=== PATIENT | female | born 1990 | race Caucasian/White ===

== ENCOUNTER 2016-06-30 15:24 | Emergency (ER) | payer OTHER ==
--- NOTE | 2016-06-30 16:29 | ER NURSING DOCUMENTATION ---
Nurse's Notes [facility] Name:Jennifer Munroe Age:25 yrs Sex:Female :1990 Arrival Date:06/30/2016 Time:15:24 Bed5 Private MD: Diagnosis:Viral Illness;Viral Upper Respiratory Infection (URI) Presentation: 06/30 15:28 Acuity: MILO 4 tg 15:30 Presenting complaint: Patient states: Cough for the past several days, interfering with tg sleep from pain. Body aches, feverish. Transition of care: patient was not received from another setting of care. Resp Distress? No respiratory distress is noted at this time. 15:30 Method Of Arrival: Private Vehicle tg Triage Assessment: 15:30 General: Appears in no apparent distress, Behavior is cooperative. Pain: Complains of tg pain in chest Aggravated by cough. Neuro: Level of Consciousness is awake, alert. Cardiovascular: No deficits noted. Respiratory: Breath sounds are clear bilaterally. Reports shortness of breath cough that is pain with cough Denies pain with respiration, pain with movement. Derm: Skin is pink, warm & dry. Historical: - Allergies: No known drug Allergies; No known drug Allergies; - Home Meds: 1. BC pill - PMHx: None; - PSHx: Tonsillectomy; - Tetanus: < 10 years. - Ebola Screening: : Patient negative for fever greater than or equal to 101.5 degrees Fahrenheit, and additional compatible Ebola Virus Disease symptoms. Patient denies exposure to infectious person. Patient denies travel to an Ebola-affected area in the 21 days before illness onset. No symptoms or risks identified at this time. . - Immunization history: Flu Vaccine >1 year. - Social history: Smoking status: Patient states was never smoker of tobacco. Screenin:43 Infectious Disease Risk Unable to Obtain. Abuse screen: Denies threats or abuse. Denies tg injuries from another. Nutritional screening: No deficits noted. Vital Signs: 15:41 BP 131 / 85; Pulse 88; Resp 16; Temp 98.5(O); Pulse Ox 95% on R/A; Weight 63.5 kg (R); tg Height 5 ft. 5 in. (165.10 cm) (R); Pain 2/10; 15:41 Body Mass Index 23.30 (63.50 kg, 165.10 cm) tg ED Course: 15:27 Patient arrived in ED. ama 15:28 Murray Garsia, RN is Primary Nurse. tg 15:28 Triage completed. tg 15:54 You Acuna MD is Attending Physician. 16:28 Valuables Remains with patient. tg Administered Medications: No medications were administered Outcome: 16:10 Discharge ordered by . [email or web address] 16:22 Discharged to home ambulatory. tg 16:22 Condition: stable 16:22 Discharge Assessment: Patient awake, alert and oriented x 3. No cognitive and/or functional deficits noted. Patient verbalized understanding of disposition instructions. 16:22 Instructed on discharge instructions, follow up and referral plans. medication usage, Prescriptions given X 2. 16:28 Patient left the ED. tg Signatures: Murray Garsia RN RN You Busch MD MD jm Averdick, Andrew, Reg Reg ama
--- NOTE | 2016-06-30 16:29 | ER PHYSICIAN DOCUMENTATION ---
Physician Documentation [facility] Name:Jennifer Munroe Age:25 yrs Sex:Female :1990 Arrival Date:06/30/2016 Time:15:24 Bed5 Private MD: You Borjas Disposition: 06/30/16 16:10 Discharged to Home/Self Care. Impression: Viral Illness, Viral Upper Respiratory Infection (URI). - Condition is Good. - Discharge Instructions: VIRAL URI Adult - URI, Viral, No Abx (Adult). - Prescriptions for Tussionex Pennkinetic ER 8- 10 mg/5 mL Oral - take 5 milliliter by ORAL route every 12 hours As needed; 60 milliliter. Tamiflu 75 mg Oral Capsule - take 1 capsule by ORAL route every 12 hours for 5 days; 10 capsule. - Medical Reconciliation form form. - Follow up: Private Physician; When: As needed; Reason: Continuance of care. - Problem is new. - Symptoms have worsened. Historical: - Allergies: No known drug Allergies; No known drug Allergies; - Home Meds: 1. BC pill - PMHx: None; - PSHx: Tonsillectomy; - Tetanus: < 10 years. - Ebola Screening: : Patient negative for fever greater than or equal to 101.5 degrees Fahrenheit, and additional compatible Ebola Virus Disease symptoms. Patient denies exposure to infectious person. Patient denies travel to an Ebola-affected area in the 21 days before illness onset. No symptoms or risks identified at this time. . - Immunization history: Flu Vaccine >1 year. - Social history: Smoking status: Patient states was never smoker of tobacco. Vital Signs: 06/30 15:41 BP 131 / 85; Pulse 88; Resp 16; Temp 98.5(O); Pulse Ox 95% on R/A; Weight 63.5 kg (R); tg Height 5 ft. 5 in. (165.10 cm) (R); Pain 2/10; 15:41 Body Mass Index 23.30 (63.50 kg, 165.10 cm) tg MDM: 15:54 Patient medically screened. 06/30 16:13 Order name: INFLUENZA A/B; Complete Time: 17:42 EDMS Dispensed Medications: No medications were administered Signatures: Murray Garsia RN RN You Busch MD MD jm
== END 2016-06-30 16:29 | disposition home or self-care (01) ==
LOC: ER 15:24
DX: J06.9 Acute upper respiratory infection, unspecified (principal); B34.9 Viral infection, unspecified
CPT/HCPCS: 87449; 99282